=== PATIENT | female | born 1930 | race Caucasian/White ===

== ENCOUNTER 2016-05-11 13:16 | Inpatient (IN) | payer MEDICARE, BC ==
[~2016-05-11] VITALS: Ht 152.4 cm; Wt 68.9 kg
[~2016-05-11 13:16] MED LIST: ALPR0.25 PO; ALPR0.257; ATOR20TA58; ATOR20TA58 PO; CALC600T4; CHOL2000; CIPR500T94 PO; CYAN10008; CYCL10TA2 PO; DOCU100C5 PO; EZET10TA3; EZET10TA3 PO; FERR-26 PO; FERR325T31; HYDR-2762 PO; LIDO700A4 TP; METH-37; METH4TAB2 PO; METO25TA2; METO50TA2 PO; MULT-245; MULT1TAB52 PO; NIFE30TA17 PO; OMEP20CA9; OMEP20TA PO; OXYC10TA32 PO; POTA25TA4; SENN8.6T99 PO; TEVETEN PO; TRAM50TA; TRIA1CAP3; TRIA1CAP3 PO; [UNRECOGNIZED DRUG - CODE]; [UNRECOGNIZED DRUG - CODE] PO
[2016-05-11 16:05] VITALS: BP 166/88
[2016-05-11 16:08] VITALS: BP 166/88
[2016-05-11] MEDS ORDERED: ATOR40TA59 PO (16:17)
[2016-05-11] MEDS ORDERED: OMEP40CA5 PO (16:20)
[2016-05-11] MEDS ORDERED: ACET325T9 PO (16:57)
[2016-05-11] MEDS ORDERED: ASPI81TA9 PO (16:59)
[2016-05-11] MEDS ORDERED: BISA10SU2 RC (16:59)
[2016-05-11] MEDS ORDERED: LACT10SO PO (17:10)
[2016-05-11] MEDS ORDERED: CALC500T PO (17:10)
[2016-05-11] MEDS ORDERED: MAGN2400 PO (17:10)
[2016-05-11] MEDS ORDERED: IBUP400T PO (17:10)
[2016-05-11] MEDS ORDERED: MAG30ORA2 PO (17:10)
[2016-05-11] MEDS ORDERED: OXYC10TA32 PO (17:12)
[2016-05-11] MEDS ORDERED: HEPARIN SQ (17:20)
[2016-05-11] MEDS ORDERED: GUAI473S3 PO (17:21)
[2016-05-11] MEDS ORDERED: MAG HYDROX/AL HYDROX/SIMETH 30 ML ORAL.SUSP PO PRN (18:15)
[2016-05-11] MEDS ORDERED: SENNOSIDES 8.6 MG TABLET PO PRN (18:15)
[2016-05-11] MEDS ORDERED: BISACODYL 10 MG SUPP.RECT RC PRN (18:15)
[2016-05-11] MEDS ORDERED: CALCIUM CARBONATE 500 MG TABLET PO PRN (18:15)
[2016-05-11] MEDS ORDERED: IBUPROFEN 400 MG TABLET. PO PRN (18:15)
[2016-05-11] MEDS ORDERED: GUAIFENESIN DM 200MG/20MG 10 ML SYRUP. PO PRN (18:15)
[2016-05-11] MEDS ORDERED: ACETAMINOPHEN 325 MG TABLET PO PRN (18:15)
[2016-05-11] MEDS ORDERED: LACTULOSE 20 GM/30 ML SOLUTION. PO PRN (18:45)
[2016-05-11] MEDS ORDERED: MAGNESIUM HYDROXIDE 2,400 MG/30 ML ORAL.SUSP. PO PRN (18:45)
[2016-05-11 19:40] VITALS: BP 145/69
[2016-05-11] MEDS: OXYCODONE ER 10 MG TAB.ER.12H. PO PRN (19:40)
[2016-05-11] MEDS: CYCLOBENZAPRINE 10 MG TABLET. PO SCH (20:48)
[2016-05-11] MEDS: METOPROLOL TART IMMED RELEASE 50 MG TABLET PO SCH (20:48)
[2016-05-11] MEDS: ALPRAZOLAM 0.25 MG TABLET PO SCH (20:48)
[2016-05-11] MEDS: DOCUSATE SODIUM 100 MG CAPSULE PO SCH (20:48)
[2016-05-11] MEDS: AMOXICILLIN/K CLAV 500/125MG TABLET. PO SCH (20:48)
[2016-05-11] MEDS: ATORVASTATIN CALCIUM 20 MG TABLET PO SCH (20:48)
[2016-05-11] MEDS: HEPARIN PF for SUB-Q USE 5,000 UNIT/0.5 ML VIAL. SQ SCH (20:49)
[2016-05-12 05:01] VITALS: BP 159/83
[2016-05-12] MEDS: HEPARIN PF for SUB-Q USE 5,000 UNIT/0.5 ML VIAL. SQ SCH (05:37)
[2016-05-12] MEDS: EZETIMIBE 10 MG TABLET PO SCH (08:21)
[2016-05-12] MEDS: ASPIRIN ENTERIC COATED 81 MG TABLET.DR. PO SCH (08:21)
[2016-05-12] MEDS: TRIAMTERENE/HCTZ 37.5/25MG TABLET. PO SCH (08:21)
[2016-05-12] MEDS: PANTOPRAZOLE 40 MG TABLET. PO SCH (08:21)
[2016-05-12] MEDS: ALPRAZOLAM 0.25 MG TABLET PO SCH ×2 (08:21→20:33)
[2016-05-12] MEDS: LOSARTAN 50 MG TABLET. PO SCH (08:22)
[2016-05-12] MEDS: METOPROLOL TART IMMED RELEASE 50 MG TABLET PO SCH ×2 (08:22→20:33)
[2016-05-12] MEDS: FERROUS SULFATE 325 MG TABLET PO SCH (08:22)
[2016-05-12] MEDS: DOCUSATE SODIUM 100 MG CAPSULE PO SCH ×2 (08:22→20:32)
[2016-05-12] MEDS: MULTIVITAMIN with MINERAL TABLET. PO SCH (08:22)
[2016-05-12] MEDS: CYCLOBENZAPRINE 10 MG TABLET. PO SCH ×3 (08:23→20:32)
[2016-05-12] MEDS: OXYCODONE ER 10 MG TAB.ER.12H. PO PRN (08:23)
[2016-05-12] MEDS: NIFEDIPINE ER 30 MG TAB.ER.24H PO SCH (08:25)
[2016-05-12] MEDS: AMOXICILLIN/K CLAV 500/125MG TABLET. PO SCH ×2 (08:25→20:32)
[2016-05-12 08:33] LABS: BILIRUBIN,URINE NEG (NEG); CLARITY,URINE CLOUDY; COLOR,URINE PINK; GLUCOSE,URINE NEG (NEG)
[2016-05-12 08:34] LABS: BACTERIA,URINE 0 /HPF (0-FEW); NITRITE,URINE NEG (NEG); RBC,URINE >40 /HPF (0-2); SQUAMOUS EPITHELIAL CELL,UR MOD /LPF; UROBILINOGEN,URINE 0.2 mg/dL (0.2 mg/dL)
[2016-05-12 14:48] VITALS: BP 147/81
[2016-05-12 19:56] VITALS: BP 131/82
[2016-05-12] MEDS: ATORVASTATIN CALCIUM 20 MG TABLET PO SCH (20:32)
[2016-05-12] MEDS: MORPHINE ER 15 MG TABLET.ER PO SCH (20:33)
[2016-05-13 06:08] VITALS: BP 134/75
[2016-05-13] MEDS: EZETIMIBE 10 MG TABLET PO SCH (08:21)
[2016-05-13] MEDS: CYCLOBENZAPRINE 10 MG TABLET. PO SCH ×3 (08:22→20:14)
[2016-05-13] MEDS: METOPROLOL TART IMMED RELEASE 50 MG TABLET PO SCH ×2 (08:22→20:15)
[2016-05-13] MEDS: FERROUS SULFATE 325 MG TABLET PO SCH (08:22)
[2016-05-13] MEDS: MULTIVITAMIN with MINERAL TABLET. PO SCH (08:22)
[2016-05-13] MEDS: TRIAMTERENE/HCTZ 37.5/25MG TABLET. PO SCH (08:22)
[2016-05-13] MEDS: DOCUSATE SODIUM 100 MG CAPSULE PO SCH ×2 (08:23→20:14)
[2016-05-13] MEDS: LOSARTAN 50 MG TABLET. PO SCH (08:23)
[2016-05-13] MEDS: ALPRAZOLAM 0.25 MG TABLET PO SCH ×2 (08:23→20:15)
[2016-05-13] MEDS: PANTOPRAZOLE 40 MG TABLET. PO SCH (08:23)
[2016-05-13] MEDS: ASPIRIN ENTERIC COATED 81 MG TABLET.DR. PO SCH (08:23)
[2016-05-13] MEDS: MORPHINE ER 15 MG TABLET.ER PO SCH ×2 (08:24→20:15)
[2016-05-13] MEDS: AMOXICILLIN/K CLAV 500/125MG TABLET. PO SCH ×2 (08:24→20:14)
[2016-05-13] MEDS: NIFEDIPINE ER 30 MG TAB.ER.24H PO SCH (08:25)
[2016-05-13 14:04] VITALS: BP 123/65
[2016-05-13] MEDS: ATORVASTATIN CALCIUM 20 MG TABLET PO SCH (20:14)
[2016-05-14 05:59] VITALS: BP 124/73
[2016-05-14] MEDS: CYCLOBENZAPRINE 10 MG TABLET. PO SCH ×3 (08:37→20:45)
[2016-05-14] MEDS: AMOXICILLIN/K CLAV 500/125MG TABLET. PO SCH ×2 (08:37→20:45)
[2016-05-14] MEDS: FERROUS SULFATE 325 MG TABLET PO SCH (08:37)
[2016-05-14] MEDS: PANTOPRAZOLE 40 MG TABLET. PO SCH (08:38)
[2016-05-14] MEDS: METOPROLOL TART IMMED RELEASE 50 MG TABLET PO SCH ×2 (08:38→20:46)
[2016-05-14] MEDS: TRIAMTERENE/HCTZ 37.5/25MG TABLET. PO SCH (08:38)
[2016-05-14] MEDS: ASPIRIN ENTERIC COATED 81 MG TABLET.DR. PO SCH (08:38)
[2016-05-14] MEDS: MORPHINE ER 15 MG TABLET.ER PO SCH ×2 (08:38→20:46)
[2016-05-14] MEDS: EZETIMIBE 10 MG TABLET PO SCH (08:38)
[2016-05-14] MEDS: NIFEDIPINE ER 30 MG TAB.ER.24H PO SCH (08:39)
[2016-05-14] MEDS: DOCUSATE SODIUM 100 MG CAPSULE PO SCH ×2 (08:39→20:46)
[2016-05-14] MEDS: LOSARTAN 50 MG TABLET. PO SCH (08:39)
[2016-05-14] MEDS: MULTIVITAMIN with MINERAL TABLET. PO SCH (08:39)
[2016-05-14] MEDS: ALPRAZOLAM 0.25 MG TABLET PO SCH ×2 (08:39→20:46)
[2016-05-14 19:51] VITALS: BP 108/71
[2016-05-14] MEDS: ATORVASTATIN CALCIUM 20 MG TABLET PO SCH (20:47)
[2016-05-15 06:01] VITALS: BP 119/74
[2016-05-15] MEDS: NIFEDIPINE ER 30 MG TAB.ER.24H PO SCH (09:00)
[2016-05-15] MEDS: MORPHINE ER 15 MG TABLET.ER PO SCH ×2 (09:00→20:02)
[2016-05-15] MEDS: TRIAMTERENE/HCTZ 37.5/25MG TABLET. PO SCH (09:00)
[2016-05-15] MEDS: LOSARTAN 50 MG TABLET. PO SCH (09:00)
[2016-05-15] MEDS: METOPROLOL TART IMMED RELEASE 50 MG TABLET PO SCH ×2 (09:00→20:03)
[2016-05-15 09:01] VITALS: BP 101/52
[2016-05-15] MEDS: ASPIRIN ENTERIC COATED 81 MG TABLET.DR. PO SCH (09:13)
[2016-05-15] MEDS: ALPRAZOLAM 0.25 MG TABLET PO SCH ×2 (09:13→20:02)
[2016-05-15] MEDS: EZETIMIBE 10 MG TABLET PO SCH (09:13)
[2016-05-15] MEDS: PANTOPRAZOLE 40 MG TABLET. PO SCH (09:13)
[2016-05-15] MEDS: MULTIVITAMIN with MINERAL TABLET. PO SCH (09:13)
[2016-05-15] MEDS: CYCLOBENZAPRINE 10 MG TABLET. PO SCH ×3 (09:13→20:03)
[2016-05-15] MEDS: AMOXICILLIN/K CLAV 500/125MG TABLET. PO SCH ×2 (09:13→20:04)
[2016-05-15] MEDS: FERROUS SULFATE 325 MG TABLET PO SCH (09:14)
[2016-05-15] MEDS: DOCUSATE SODIUM 100 MG CAPSULE PO SCH ×2 (09:14→20:02)
[2016-05-15 11:26] VITALS: BP 124/77
[2016-05-15 14:55] VITALS: BP 126/82
[2016-05-15] MEDS: ATORVASTATIN CALCIUM 20 MG TABLET PO SCH (20:02)
[2016-05-15 20:09] VITALS: BP 136/74
[2016-05-16] MEDS: OXYCODONE ER 10 MG TAB.ER.12H. PO PRN (01:15)
[2016-05-16 06:29] VITALS: BP 149/80
[2016-05-16] MEDS: TRIAMTERENE/HCTZ 37.5/25MG TABLET. PO SCH (07:48)
[2016-05-16] MEDS: AMOXICILLIN/K CLAV 500/125MG TABLET. PO SCH ×2 (07:48→20:04)
[2016-05-16] MEDS: NIFEDIPINE ER 30 MG TAB.ER.24H PO SCH (07:48)
[2016-05-16] MEDS: DOCUSATE SODIUM 100 MG CAPSULE PO SCH ×2 (07:48→20:03)
[2016-05-16] MEDS: PANTOPRAZOLE 40 MG TABLET. PO SCH (07:48)
[2016-05-16] MEDS: EZETIMIBE 10 MG TABLET PO SCH (07:48)
[2016-05-16] MEDS: MORPHINE ER 15 MG TABLET.ER PO SCH ×2 (07:48→20:04)
[2016-05-16] MEDS: ALPRAZOLAM 0.25 MG TABLET PO SCH ×2 (07:48→20:03)
[2016-05-16] MEDS: ASPIRIN ENTERIC COATED 81 MG TABLET.DR. PO SCH (07:49)
[2016-05-16] MEDS: LOSARTAN 50 MG TABLET. PO SCH (07:49)
[2016-05-16] MEDS: METOPROLOL TART IMMED RELEASE 50 MG TABLET PO SCH ×2 (07:49→20:04)
[2016-05-16] MEDS: MULTIVITAMIN with MINERAL TABLET. PO SCH (07:49)
[2016-05-16] MEDS: FERROUS SULFATE 325 MG TABLET PO SCH (07:49)
[2016-05-16] MEDS: CYCLOBENZAPRINE 10 MG TABLET. PO SCH ×3 (07:49→20:03)
[2016-05-16 15:09] VITALS: BP 125/82
[2016-05-16 19:59] VITALS: BP 113/62
[2016-05-16] MEDS: ATORVASTATIN CALCIUM 20 MG TABLET PO SCH (20:03)
[2016-05-17 05:05] VITALS: BP 123/75
[2016-05-17 05:54] LABS: BASO # 0.1 x10^3/uL (0.0-0.2); BASO % 1 % (0-3); EOS # 0.3 x10^3/uL (0.0-0.7); EOS % 4 % (0-3); HEMATOCRIT 34.3 % (36.0-47.0); LYMPH # 1.2 x10^3/uL (1.0-4.8); LYMPH % 14 % (24-48); MEAN CORPUSCULAR HEMOGLOBIN 31 pg (25-35); MEAN CORPUSCULAR HGB CONC 32 g/dL (31-37); MEAN CORPUSCULAR VOLUME 96 fL (79-100); MONO # 1.1 x10^3/uL (0.0-1.1); MONO % 13 % (0-9); NEUT # 5.8 x10^3uL (1.8-7.7); NEUT % 69 % (31-73); PLATELET COUNT 537 x10^3/uL (140-400); RED BLOOD COUNT 3.56 x10^6/uL (3.50-5.40); RED CELL DISTRIBUTION WIDTH 13.7 % (11.5-14.5); WHITE BLOOD COUNT 8.3 x10^3/uL (4.0-11.0)
[2016-05-17 06:08] LABS: ALBUMIN 2.2 g/dL (3.4-5.0); CALCIUM 9.6 mg/dL (8.5-10.1); GFR 23.6; PHOSPHORUS 4.5 mg/dL (2.6-4.7)
[2016-05-17 06:13] LABS: POTASSIUM 6.1 mmol/L (3.5-5.1)
[2016-05-17] MEDS ORDERED: SODIUM POLYSTYRENE SULFONATE 15 GM/60 ML ORAL.SUSP. PO ONE (06:30)
[2016-05-17] MEDS: MORPHINE ER 15 MG TABLET.ER PO SCH ×2 (09:00→21:03)
[2016-05-17] MEDS: TRIAMTERENE/HCTZ 37.5/25MG TABLET. PO SCH (09:03)
[2016-05-17] MEDS: METOPROLOL TART IMMED RELEASE 50 MG TABLET PO SCH ×2 (09:04→21:02)
[2016-05-17] MEDS: EZETIMIBE 10 MG TABLET PO SCH (09:04)
[2016-05-17] MEDS: MULTIVITAMIN with MINERAL TABLET. PO SCH (09:04)
[2016-05-17] MEDS: DOCUSATE SODIUM 100 MG CAPSULE PO SCH ×2 (09:04→21:02)
[2016-05-17] MEDS: ASPIRIN ENTERIC COATED 81 MG TABLET.DR. PO SCH (09:04)
[2016-05-17] MEDS: PANTOPRAZOLE 40 MG TABLET. PO SCH (09:04)
[2016-05-17] MEDS: FERROUS SULFATE 325 MG TABLET PO SCH (09:04)
[2016-05-17] MEDS: LOSARTAN 50 MG TABLET. PO SCH (09:04)
[2016-05-17] MEDS: CYCLOBENZAPRINE 10 MG TABLET. PO SCH ×4 (09:04→21:02)
[2016-05-17] MEDS: NIFEDIPINE ER 30 MG TAB.ER.24H PO SCH (09:05)
[2016-05-17] MEDS: ALPRAZOLAM 0.25 MG TABLET PO SCH ×2 (09:05→21:02)
[2016-05-17] MEDS: AMOXICILLIN/K CLAV 500/125MG TABLET. PO SCH (09:05)
[2016-05-17 19:15] VITALS: BP 127/79
[2016-05-17] MEDS: ATORVASTATIN CALCIUM 20 MG TABLET PO SCH (21:02)
[2016-05-18 06:06] VITALS: BP 130/65
[2016-05-18 06:13] LABS: CALCIUM PTH 9.3 mg/dL (8.7-10.3); CREATININE PTH 1.79 mg/dL (0.57-1.00); PHOSPHORUS PTH 4.6 mg/dL (2.5-4.5); PTH INTACT 40 pg/mL (15-65); eGFR IF AFRICAN AMERICAN 29 (>59); eGFR IF NONAFRICAN AMERICAN 25 (>59)
[2016-05-18 06:32] LABS: CALCIUM 9.3 mg/dL (8.5-10.1); CREATININE 1.9 mg/dL (0.6-1.0); POTASSIUM 4.7 mmol/L (3.5-5.1)
[2016-05-18] MEDS: MULTIVITAMIN with MINERAL TABLET. PO SCH (08:30)
[2016-05-18] MEDS: FERROUS SULFATE 325 MG TABLET PO SCH (08:30)
[2016-05-18] MEDS: NIFEDIPINE ER 30 MG TAB.ER.24H PO SCH (08:30)
[2016-05-18] MEDS: DOCUSATE SODIUM 100 MG CAPSULE PO SCH ×2 (08:30→19:46)
[2016-05-18] MEDS: EZETIMIBE 10 MG TABLET PO SCH (08:31)
[2016-05-18] MEDS: CYCLOBENZAPRINE 10 MG TABLET. PO SCH ×3 (08:31→19:46)
[2016-05-18] MEDS: ALPRAZOLAM 0.25 MG TABLET PO SCH ×2 (08:31→19:45)
[2016-05-18] MEDS: MORPHINE ER 15 MG TABLET.ER PO SCH ×2 (08:31→19:45)
[2016-05-18] MEDS: ASPIRIN ENTERIC COATED 81 MG TABLET.DR. PO SCH (08:31)
[2016-05-18] MEDS: PANTOPRAZOLE 40 MG TABLET. PO SCH (08:31)
[2016-05-18] MEDS: METOPROLOL TART IMMED RELEASE 50 MG TABLET PO SCH ×2 (08:31→19:46)
[2016-05-18 19:02] VITALS: BP 116/73
[2016-05-18] MEDS: ATORVASTATIN CALCIUM 20 MG TABLET PO SCH (19:46)
[2016-05-19] MEDS ORDERED: ONDANSETRON ODT 4 MG TAB.RAPDIS PO PRN (01:15)
[2016-05-19 05:01] VITALS: BP 129/78
[2016-05-19] MEDS: FERROUS SULFATE 325 MG TABLET PO SCH (08:40)
[2016-05-19] MEDS: ASPIRIN ENTERIC COATED 81 MG TABLET.DR. PO SCH (08:40)
[2016-05-19] MEDS: MULTIVITAMIN with MINERAL TABLET. PO SCH (08:41)
[2016-05-19] MEDS: PANTOPRAZOLE 40 MG TABLET. PO SCH (08:41)
[2016-05-19] MEDS: METOPROLOL TART IMMED RELEASE 50 MG TABLET PO SCH ×2 (08:41→20:23)
[2016-05-19] MEDS: ALPRAZOLAM 0.25 MG TABLET PO SCH ×2 (08:41→20:23)
[2016-05-19] MEDS: EZETIMIBE 10 MG TABLET PO SCH (08:41)
[2016-05-19] MEDS: CYCLOBENZAPRINE 10 MG TABLET. PO SCH ×3 (08:42→20:22)
[2016-05-19] MEDS: DOCUSATE SODIUM 100 MG CAPSULE PO SCH ×2 (08:42→20:22)
[2016-05-19] MEDS: NIFEDIPINE ER 30 MG TAB.ER.24H PO SCH (08:43)
[2016-05-19] MEDS: MORPHINE ER 15 MG TABLET.ER PO SCH ×2 (08:48→20:22)
[2016-05-19] MEDS ORDERED: DOCUSATE SODIUM 100 MG CAPSULE PO SCH (09:45)
[2016-05-19] MEDS: POLYETHYLENE GLYCOL 3350 17 GM PACKET. PO SCH (10:11)
[2016-05-19 10:52] VITALS: BP 148/82
[2016-05-19 19:30] VITALS: BP 142/71
[2016-05-19] MEDS: ATORVASTATIN CALCIUM 20 MG TABLET PO SCH (20:21)
[2016-05-20 05:51] VITALS: BP 111/75
[2016-05-20] MEDS: POLYETHYLENE GLYCOL 3350 17 GM PACKET. PO SCH (08:20)
[2016-05-20] MEDS: ASPIRIN ENTERIC COATED 81 MG TABLET.DR. PO SCH (08:20)
[2016-05-20] MEDS: NIFEDIPINE ER 30 MG TAB.ER.24H PO SCH (08:21)
[2016-05-20] MEDS: DOCUSATE SODIUM 100 MG CAPSULE PO SCH ×2 (08:21→21:02)
[2016-05-20] MEDS: EZETIMIBE 10 MG TABLET PO SCH (08:21)
[2016-05-20] MEDS: METOPROLOL TART IMMED RELEASE 50 MG TABLET PO SCH ×2 (08:21→21:03)
[2016-05-20] MEDS: FERROUS SULFATE 325 MG TABLET PO SCH (08:21)
[2016-05-20] MEDS: MULTIVITAMIN with MINERAL TABLET. PO SCH (08:21)
[2016-05-20] MEDS: PANTOPRAZOLE 40 MG TABLET. PO SCH (08:21)
[2016-05-20] MEDS: CYCLOBENZAPRINE 10 MG TABLET. PO SCH ×3 (08:21→21:02)
[2016-05-20] MEDS: ALPRAZOLAM 0.25 MG TABLET PO SCH ×2 (08:22→21:03)
[2016-05-20] MEDS: MORPHINE ER 15 MG TABLET.ER PO SCH (08:24)
[2016-05-20 10:55] VITALS: BP 119/76
[2016-05-20 19:38] VITALS: BP 115/68
[2016-05-20] MEDS: OXYCODONE ER 10 MG TAB.ER.12H. PO PRN (21:02)
[2016-05-20] MEDS: ATORVASTATIN CALCIUM 20 MG TABLET PO SCH (21:02)
[2016-05-21 05:33] VITALS: BP 128/92
[2016-05-21] MEDS ORDERED: HYDR-2678 PO (08:28)
[2016-05-21] MEDS: POLYETHYLENE GLYCOL 3350 17 GM PACKET. PO SCH (09:00)
[2016-05-21] MEDS: ASPIRIN ENTERIC COATED 81 MG TABLET.DR. PO SCH (09:04)
[2016-05-21] MEDS: CYCLOBENZAPRINE 10 MG TABLET. PO SCH (09:04)
[2016-05-21 09:05] VITALS: BP 128/92
[2016-05-21] MEDS: MULTIVITAMIN with MINERAL TABLET. PO SCH (09:05)
[2016-05-21] MEDS: DOCUSATE SODIUM 100 MG CAPSULE PO SCH (09:05)
[2016-05-21] MEDS: NIFEDIPINE ER 30 MG TAB.ER.24H PO SCH (09:05)
[2016-05-21] MEDS: ALPRAZOLAM 0.25 MG TABLET PO SCH (09:05)
[2016-05-21] MEDS: METOPROLOL TART IMMED RELEASE 50 MG TABLET PO SCH (09:05)
[2016-05-21] MEDS: PANTOPRAZOLE 40 MG TABLET. PO SCH (09:05)
[2016-05-21] MEDS: FERROUS SULFATE 325 MG TABLET PO SCH (09:06)
[2016-05-21] MEDS: EZETIMIBE 10 MG TABLET PO SCH (09:06)
--- NOTE | 2016-06-03 10:07 | DS ---
DATE OF DISCHARGE: 05/21/2016 HOSPITAL COURSE: The patient was admitted to swing bed, apparently initially she had came in with a right pleural effusion and severe pneumonia. She continued on IV antibiotic therapy as an inpatient on her swing bed to complete resolution of that infiltrative process. The patient made excellent progress during the rest of her hospitalization and she was discharged from swing bed, discharged to home with home health. She will continue to be followed up accordingly. IMPRESSION: Pneumonia of unspecified etiology, community-acquired; left pleural effusion; anemia of chronic disease; hyperkalemia; chronic kidney disease 3; hyperglycemia; and hematuria. The patient continued on medications as an outpatient. PLAN: See MRAD. Decreased activity and follow up in 7-10 days or sooner as needed. SCOTT DANIELS MD DR: LOVELY/raffaele JOB#: [id number] / [id number]
== END 2016-05-21 11:11 | disposition home health service (06) | DRG 194 ==
LOC: 1 SOUTH 16:06
PROVIDERS: ADMIT Family Medicine; ATTEND Family Medicine
DX: J18.9 Pneumonia, unspecified organism (principal); J90 Pleural effusion, not elsewhere classified; E87.5 Hyperkalemia; D63.8 Anemia in other chronic diseases classified elsewhere; N18.3 Chronic kidney disease, stage 3 (moderate); R31.9 Hematuria, unspecified; R73.9 Hyperglycemia, unspecified; Z88.1 Allergy status to other antibiotic agents
CPT/HCPCS: 36415; 80048; 80069; 81001; 83970; 84132; 85027; 87086; Q0162; 97110; 97116; 97530; 97535

== ENCOUNTER → 2016-12-06 | Outpatient (CLI) | payer MEDICARE, BC ==
[~2016-12-06] MED LIST changes: +ACET325T9 PO; +ASPI-612 PO; +ATOR40TA59 PO; +BISA10SU2 RC; +CALC500T PO; +CYAN100070; -CYAN10008; +CYCL-331 PO; -CYCL10TA2 PO; +DOCU100C28 PO; -DOCU100C5 PO; +EZET10TA18; +EZET10TA18 PO; -EZET10TA3; -EZET10TA3 PO; +FERR-36; -FERR325T31; +GUAI473S3 PO; +HEPARIN SQ; +HYDR-2678 PO; +IBUP400T18 PO; +LACT10SO PO; +MAG30ORA2 PO; +MAGN2400 PO; -OMEP20TA PO; +OMEP20TA8 PO; +OMEP40CA5 PO; -OXYC10TA32 PO; +OXYC10TA45 PO
--- NOTE | 2016-12-06 14:24 | RAD ---
COMPLETE ABDOMINAL ULTRASOUND Clinical History: ELEVATED LFT'S Comparison: Abdominal ultrasound dated 05/05/2016 Technique: Sonographic examination of the abdomen was performed and multiple grayscale and duplex Doppler static images were obtained. Findings: The majority of the liver is visualized and appears homogeneous. The liver measures 15 cm. Portal flow is hepatopetal. The gallbladder is surgically absent. The common bile duct is normal in caliber, measuring 2 mm in diameter. The pancreas appears normal. Portions of the body and tail are not well visualized due to overlying bowel gas. The right kidney is normal in morphology and echotexture and measures 8.3 x 4.1 x 4.1 cm. The left kidney measures 10.3 x 4.2 x 4.2 cm with a 4.0 x 3.5 x 3.0 cm simple cyst off the lower pole. There is no hydronephrosis. The spleen is not enlarged, measuring 7 cm. Atherosclerotic thoracic aorta. IMPRESSION: Cholecystectomy. Left renal cyst. Otherwise unremarkable abdominal ultrasound.
== END | disposition home or self-care (01) ==
LOC: US 09:29
PROVIDERS: ATTEND Nurse Practitioner Family
DX: N28.1 Cyst of kidney, acquired (principal); R94.5 Abnormal results of liver function studies; I70.0 Atherosclerosis of aorta; Z90.49 Acquired absence of other specified parts of digestive tract
CPT/HCPCS: 76700

== ENCOUNTER → 2017-01-13 | Outpatient (CLI) | payer MEDICARE, BC ==
--- NOTE | 2017-01-13 15:37 | RAD ---
EXAM: Renal/retroperitonal ultrasound HISTORY: Urinary retention, chronic cystitis. COMPARISON: 12/06/2016. FINDINGS: Ultrasound of the kidneys, bladder and retroperitoneum was performed. The right kidney measures 9.2 cm. Cortical thickness and echogenicity are preserved. There is no hydronephrosis. A cyst in the interpolar region measures 1.7 x 1.5 cm and contains a thin septation. This is better seen than on the prior study and appears benign. The left kidney measures 9.6 cm. Cortical thickness and echogenicity are preserved. There is no hydronephrosis. A simple cyst at the left lower pole measures 3.4 x 3.0 cm and also appears benign. Images of the bladder reveal no gross abnormality. Both ureteral jets are visualized. The void bladder volume is 182 mL. There is a 72 mL post void residual. IMPRESSION: 1. 72 mL post void residual. 2. A 1.7 cm septated cyst in the right kidney is better seen than on prior studies but is likely stable and benign. A follow-up ultrasound could be performed in 6 months if there is persistent concern.
== END | disposition home or self-care (01) ==
LOC: US 12:50
PROVIDERS: ATTEND Internal Medicine Nephrology
DX: N28.1 Cyst of kidney, acquired (principal); N30.20 Other chronic cystitis without hematuria; R39.12 Poor urinary stream; R33.8 Other retention of urine
CPT/HCPCS: 76770

== ENCOUNTER → 2018-07-27 | Outpatient (CLI) | payer MEDICARE, BC ==
[~2018-07-27] MED LIST changes: -FERR-26 PO; +FERR325T14 PO; -HYDR-2762 PO; +HYDR-2765 PO; -METO50TA2 PO; +METO50TA6 PO; -OXYC10TA45 PO; +OXYC10TA46 PO
--- NOTE | 2018-07-27 17:10 | RAD ---
Renal ultrasound, 07/27/2018: HISTORY: Renal disease, cyst The right kidney measures 9.2 cm in length while left kidney measures 9.6 cm. There is bilateral renal cortical scarring. There is no evidence of hydronephrosis. A 3.4 cm simple cyst is identified in the lower pole the left kidney. A 1.6 cm cyst is identified in the right kidney. It contains a thin septation, better seen on the previous study 01/13/2017. No solid renal mass is seen. Limited views of urinary bladder are unremarkable. IMPRESSION: 1. Small bilateral renal cysts. 2. Mild bilateral renal cortical scarring. 3. No evidence of renal obstruction. Electronically signed by: Tony Duarte MD (07/27/2018 5:07 PM) [facility]
== END | disposition home or self-care (01) ==
LOC: US 13:28
PROVIDERS: ATTEND Internal Medicine Nephrology
DX: N28.1 Cyst of kidney, acquired (principal); N28.89 Other specified disorders of kidney and ureter
CPT/HCPCS: 76770

== ENCOUNTER → 2018-09-22 | Outpatient (CLI) | payer MEDICARE, BC ==
[~2018-09-22] MED LIST changes: -CALC500T PO; +CALC500T31 PO; +OMEP20CA10; -OMEP20CA9
--- NOTE | 2018-09-22 18:49 | RAD ---
CT right hip without contrast HISTORY: Right hip pain Axial helical images were obtained of the right hip from the level of the iliac crest through the proximal femur without contrast and axial coronal and sagittal reconstruction was performed. FINDINGS: The visualized osseous structures are intact. There is gross osteopenia which limits sensitivity for possible nondisplaced fractures. The femoral acetabular relationship is normal. There is no free fluid in the pelvis. IMPRESSION: No acute findings. Electronically signed by: Ranjeet Nathan III, MD (09/22/2018 6:46 PM) [facility]
== END | disposition home or self-care (01) ==
LOC: CT 17:08
PROVIDERS: ATTEND Family Medicine
DX: M85.88 Other specified disorders of bone density and structure, other site (principal)
CPT/HCPCS: 73700

== ENCOUNTER → 2018-09-26 | Outpatient (CLI) | payer MEDICARE, BC ==
--- NOTE | 2018-09-26 14:33 | CARD ---
MR#: [id number] Date of Study: 09/26/2018 Ordering Physician: DAHLIA PITTMAN, Referring Physician: DAHLIA PITTMAN Tech: Marcela Barrientos RDCS APPROVED REPORT EXAM: Two-dimensional and M-mode echocardiogram with Doppler and color Doppler. Other Information Quality : Good INDICATION Hypertension/HCVD 2D DIMENSIONS RVDd2.2 (2.9-3.5cm)Left Atrium(2D)3.3 (1.6-4.0cm) IVSd0.8 (0.7-1.1cm)Aortic Root(2D)2.8 (2.0-3.7cm) LVDd4.1 (3.9-5.9cm)LVOT Diameter2.0 (1.8-2.4cm) PWd0.8 (0.7-1.1cm)LVDs3.2 (2.5-4.0cm) FS (%) 25.0 %SV33.7 ml LVEF(%)55.0 (>50%) Aortic Valve AoV Peak Kenneth.196.1cm/sAoV VTI47.5cm AO Peak GR.15.4mmHgLVOT Peak Kenneth.119.1cm/s LVOT VTI 23.46cmAO Mean GR.9mmHg LINN (VMAX)1.75jl7BSZ (VTI)1.51cm2 AI P 1/2 [id number] Mitral Valve MV E Eecqtgbc116.7cm/sMV DECEL [id number] MV A Wcwuepzh917.6cm/sE/A Ratio1.0 Tricuspid Valve TR P. Hbvcrtaf805ab/sRAP CUVRQQVE9ciSf TR Peak Gr.63bnHaQOBW72hgQm Pulmonary Vein S1 Hzcibdlp38.6cm/sD2 Kotmaioy02.1cm/s LEFT VENTRICLE The left ventricle is normal size. There is borderline concentric left ventricular hypertrophy. The l eft ventricular systolic function is normal and the ejection fraction is within normal range. The Eje ction Fraction is 55-60%. There is normal LV segmental wall motion. Transmitral Doppler flow pattern is Grade II-pseudonormal filling dynamics. RIGHT VENTRICLE The right ventricle is normal size. The right ventricular systolic function is normal. ATRIA The left atrium size is normal. The right atrium size is normal. The interatrial septum is intact wit h no evidence for an atrial septal defect or patent foramen ovale as noted on 2-D or Doppler imaging. AORTIC VALVE The aortic valve is calcified and displays decreased opening. Doppler and Color Flow revealed mild ao rtic regurgitation. Calculated aortic valve area is 1.5 cm2 with maximum pressure gradient of 16 mmHg and mean pressure gradient of 9 mmHg. Doppler and color-flow analysis revealed mild aortic stenosis. MITRAL VALVE The mitral valve is mildly thickened but opens well. Mitral annular calcification is mild. There is n o evidence of mitral valve prolapse. There is no mitral valve stenosis. Doppler and Color-flow reveal ed mild mitral regurgitation. TRICUSPID VALVE The tricuspid valve is normal in structure and function. Doppler and Color Flow revealed moderate tri cuspid regurgitation. The PA pressure was estimated at 52 mmHg. There is no tricuspid valve stenosis. PULMONIC VALVE The pulmonic valve is not well visualized. Doppler and Color Flow revealed trace to mild pulmonic kwaku vular regurgitation. There is no pulmonic valvular stenosis. GREAT VESSELS The aortic root is normal in size. The ascending aorta is normal in size. The IVC is normal in size a nd collapses >50% with inspiration. PERICARDIAL EFFUSION There is no evidence of significant pericardial effusion. Critical Notification Critical Value: No <Conclusion> The left ventricle is normal size. The left ventricular systolic function is normal and the ejection fraction is within normal range. The Ejection Fraction is 55-60%. There is borderline concentric left ventricular hypertrophy. Calculated aortic valve area is 1.5 cm2 with maximum pressure gradient of 16 mmHg and mean pressure g radient of 9 mmHg. Doppler and color-flow analysis revealed mild aortic stenosis. Doppler and Color Flow revealed mild aortic regurgitation. Doppler and Color-flow revealed mild mitral regurgitation. Doppler and Color Flow revealed moderate tricuspid regurgitation. The PA pressure was estimated at 52 mmHg. Doppler and Color Flow revealed trace to mild pulmonic valvular regurgitation. Signed by : Andrey Ware MD Electronically Approved : 09/26/2018 14:33:00
== END | disposition home or self-care (01) ==
LOC: ECHO 12:30
PROVIDERS: ATTEND Internal Medicine Cardiovascular Disease
DX: I08.8 Other rheumatic multiple valve diseases (principal); I11.9 Hypertensive heart disease without heart failure
CPT/HCPCS: 93306

== ENCOUNTER → 2018-10-02 | Outpatient (CLI) | payer MEDICARE, BC ==
--- NOTE | 2018-10-03 09:20 | RAD ---
MR#: [id number] Date of Study: 10/02/2018 Ordering Physician: DAHLIA PITTMAN, Referring Physician: DAHLIA PITTMAN, Tech: Ruthie Nunez RVT, [facility] APPROVED REPORT Patient Location : OUT-PATIENT Indications Lower Extremity Pain : Venous Insufficiency Risk Factors Grayscale images of the bilateral greater saphenous veins are limited as they're not well visualized after the proximal segments. Proximally they are measuring approximately 5 mm without any obvious theresa dence of reflux. Critical Notification Critical Value: No <Conclusion> 1. Limited evaluation of the mid to distal greater saphenous veins, no obvious evidence of reflux 2. Significantly small in size lesser saphenous veins without any obvious evidence of reflux Signed by : Vijay Robison, Electronically Approved : 10/03/2018 09:20:06
--- NOTE | 2018-10-03 09:22 | RAD ---
MR#: [id number] Date of Study: 10/02/2018 Ordering Physician: DAHLIA PITTMAN, Referring Physician: DAHLIA PITTMAN, Tech: Ruthie Nunez RVT, [facility] APPROVED REPORT Patient Location: OUT-PATIENT Indications Claudication: PAD Grayscale images of the bilateral lower extremity arterial vessels revealed diffuse calcified vessels . No obvious high-grade stenosis is identified in the above knee vessels. Cannot rule out a possible 50% stenosis involving the right distal SFA popliteal junction. Spectral waveforms are biphasic above the knee bilaterally. Below the knee there is three-vessel runoff but likely high-grade stenosis involving the right odd bundle worker ior tibial and left anterior tibial arteries. Risk Factors Hypertension VELOCITY AND DOPPLER WAVEFORM ANALYSIS RIGHT cm/secWaveformSeverity LEFT cm/secWaveform Severity pCFA 114.9BiphasicpCFA 160.9Biphasic Prof Fem Art. 82.4MonophasicProf Fem Art. 112.5Biphasic Fem Art Prox. 94.2BiphasicFem Art Prox. 86.2Biphasic Fem Art Mid. 64.3BiphasicFem Art Mid. 85.2Biphasic Fem Art Dist. 120.3BiphasicFem Art Dist. 34.3Biphasic Pop Art(AK) 42.6BiphasicPop Art(AK) 53.3Biphasic MEDIA/INSTRUCTIONAL DESIGNER Prox. 49.5BiphasicPTA Prox. 51.4Monophasic MEDIA/INSTRUCTIONAL DESIGNER Dist. 25.9MonophasicPTA Dist. 37.9Monophasic Per Art Dist.40.7BiphasicPer Art Dist.50.3Biphasic ANA MARIA Prox. 44.4BiphasicATA Prox. 17.7Monophasic DPA 66BiphasicDPA 36Monophasic Critical Notification Critical Value: No <Conclusion> 1. 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 2. 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
== END | disposition home or self-care (01) ==
LOC: US 12:29
PROVIDERS: ATTEND Internal Medicine Cardiovascular Disease
DX: I70.203 Unspecified atherosclerosis of native arteries of extremities, bilateral legs (principal); I87.2 Venous insufficiency (chronic) (peripheral)
CPT/HCPCS: 93925; 93970